=== PATIENT | male | born 1945 | race Hispanic/Latino ===

== ENCOUNTER 2017-05-30 07:34 | Day surgery (SDC) | payer OTHER ==
[~2017-05-30 07:34] MED LIST: DIPRIVAN 10 MG/ML IV ONE; NACL BACTERIOSTATIC INFILTRATI ONE; VERSED ONE; XYLOCAINE 1%/ EPI 1:100,000 INFILTRATI ONE
[2017-05-30] MEDS ORDERED: NACL 0.9% 1000 ML 1,000 ML ONE (07:39)
[2017-05-30] MEDS ORDERED: XYLOCAINE MPF 2% ONE (07:44)
--- NOTE | 2017-05-30 07:45 | Anesthesia Consultation ---
Anesthesia Consult and Med Hx Date of service: 05/30/17 - Airway Anesthetic Teeth Evaluation: Edentulous ROM Head & Neck: Adequate Mental/Hyoid Distance: Adequate Mallampati Class: Class III Intubation Access Assessment: Probably Good - Pulmonary Exam CTA: Yes - Cardiac Exam Cardiac Exam: RRR - Pre-Operative Health Status ASA Pre-Surgery Classification: ASA3 Proposed Anesthetic Plan: General, MAC (Informed consent obtained) - Pulmonary Hx Smoking: Yes (STOPPED ) COPD: Yes (DAILY INHALERS) Hx Sleep Apnea: Yes (DX SLEEP APNEA , NO CPAP, O2 AT NIGHT) - Cardiovascular System Hx Hypertension: Yes (X 18 YRS) Hx Coronary Artery Disease: Yes Hx Heart Attack/AMI: No Hx Peripheral Vascular Disease: Yes - Central Nervous System Hx Back Pain: Yes (WITH PAIN /WEAKNESS SUSIE LEGS) - Endocrine Hx Hypothyroidism: Yes (ON DAILY MEDS ( JUST STARTED)) - Other Systems Hx Cancer: Yes (SKIN CA FROM NOSE AND LEFT HAND REMOVED)
--- NOTE | 2017-05-30 07:46 | Anesthesia Day of Surgery ---
Anesthesia Day of Surgery - Day of Surgery Patient Examined: Yes Patient H&P Reviewed: Yes Patient is NPO: Yes
[2017-05-30] MEDS ORDERED: SUBLIMAZE IV PRN (07:47)
[2017-05-30] MEDS ORDERED: PEPCID IV NR (08:00)
[2017-05-30] MEDS ORDERED: PROVENTIL IH NR (08:00)
[2017-05-30] MEDS ORDERED: NACL 0.9% 1000 ML 1,000 ML IV SCH (08:00)
[2017-05-30 08:12] LABS: Hematocrit 39.5 % (35.5-45.6); Hemoglobin 13.3 gm/dl (11.8-15.2); Mean Corpuscular HGB Conc 34 % (32-34); Mean Corpuscular Hemoglobin 32 pg (28-32); Mean Corpuscular Volume 94 fl (84-94); Platelet Count 160 K/mm3 (140-440); Red Blood Count 4.22 M/mm3 (3.65-5.03); Red Cell Distribution Width 13.5 % (13.2-15.2)
[2017-05-30 08:28] LABS: BUN/Creatinine Ratio 12; Blood Urea Nitrogen 11 mg/dL (9-20); Calcium 8.6 mg/dL (8.4-10.2); Hemolysis Index 15
--- NOTE | 2017-05-30 08:30 | Short Stay Summary ---
Short Stay Documentation Date of service: 05/30/17 - History H&P: obtained from office - Allergies and Medications Current Medications: Allergies No Known Allergies Allergy (Verified 05/22/17 17:24) Home Medications Medication Instructions Recorded Confirmed Last Taken Type ALBUTEROL Inhaler [Proair] 2 puff IH QID PRN 05/22/17 05/22/17 Unknown History ALBUTEROL NEB's [Proventil] 2.5 mg IH TID PRN 05/22/17 05/22/17 Unknown History Aspirin [Aspirin TAB] 325 mg PO QDAY 05/22/17 05/22/17 Unknown History Carvedilol [Coreg] 25 mg PO BID 05/22/17 05/22/17 Unknown History Celecoxib [celeBREX] 200 mg PO DAILY 05/22/17 05/22/17 Unknown History Clotrimazole/Betamethasone 1 applicatio TP BID 05/22/17 05/22/17 Unknown History [Lotrisone] Diclofenac Sodium 75 mg PO PRN PRN 05/22/17 05/22/17 Unknown History Furosemide [Lasix TAB] 60 mg PO QDAY 05/22/17 05/22/17 Unknown History Ipratropium/Albuterol Sulfate 1 spray IH PRN PRN 05/22/17 05/22/17 Unknown History [Combivent Respimat] Levothyroxine [Synthroid] 50 mcg PO QAM 05/22/17 05/22/17 Unknown History Linaclotide (Nf) [Linzess (Nf)] 290 mcg PO QDAY 05/22/17 05/22/17 Unknown History Methadone [Dolophine] 5 mg PO DAILY 05/22/17 05/22/17 Unknown History Naloxegol Oxalate [Movantik] 25 mg PO DAILY 05/22/17 05/22/17 Unknown History Potassium Chloride [Klor-Con 10 meq PO DAILY 05/22/17 05/22/17 Unknown History Sprinkle] Sennosides [Senna] 8.6 mg PO DAILY 05/22/17 05/22/17 Unknown History Umeclidinium Brm/Vilanterol Tr 1 each IH DAILY 05/22/17 05/22/17 Unknown History [Anoro Ellipta 62.5-25 Mcg INH] Venlafaxine HCl [Venlafaxin ER] 75 mg PO DAILY 05/22/17 05/22/17 Unknown History oxyCODONE [Roxicodone] 10 mg PO BID 05/22/17 05/22/17 Unknown History Active Medications Albuterol (Proventil) 2.5 mg IH PREOP NR Stop: 05/30/17 12:00 Last Admin: 05/30/17 08:01 Dose: 2.5 mg Famotidine (Pepcid) 20 mg IV PREOP NR Stop: 05/30/17 12:00 Last Admin: 05/30/17 07:53 Dose: 20 mg Fentanyl (Sublimaze) 50 mcg IV Q5MIN PRN PRN Reason: Pain , Severe (7-10) Stop: 05/30/17 12:00 Sodium Chloride (Nacl 0.9% 1000 Ml) 1,000 mls @ 75 mls/hr IV DIRECT VALENCIA Last Admin: 05/30/17 07:53 Dose: 75 mls/hr Vancomycin HCl (Vancomycin/Ns 1 Gm/250 Ml) 1 gm in 250 mls @ 166.667 mls/hr IV PREOP NR; Protocol - Disposition Condition at discharge: Good Disposition: [id number] TO HOME OR SELFCARE Short Stay Discharge Plan Activity: advance as tolerated Weight Bearing Status: Weight Bear as Tolerated Diet: low cholesterol Wound: remove dressing (tomorrow), other Durable Medical Equipment Needed Upon Discharge: other (abdominal binder) Follow up with: ATILIO SANCHEZ MD [Primary Care Provider] - 7 Days Prescriptions: oxyCODONE [Roxicodone TAB] 10 mg PO BID 7 Days #20 tablet
[2017-05-30] MEDS ORDERED: NACL 0.9% 250ML 250 ML ONE (08:34)
[2017-05-30] MEDS ORDERED: VANCOMYCIN VIAL ONE (08:34)
[2017-05-30] MEDS ORDERED: KETALAR ONE (08:39)
[2017-05-30] MEDS ORDERED: XYLOCAINE 1%/ EPI 1:100,000 INFILTRATI ONE ×2 (08:40)
[2017-05-30] MEDS ORDERED: NACL 0.9% IR ONE (08:58)
[2017-05-30] MEDS ORDERED: VANCOMYCIN/0.45 NS 1 GM/250 ML 1 GM/250 ML BAG IV SCH (09:00)
[2017-05-30] MEDS ORDERED: VANCOMYCIN/NS 1 GM/250 ML 1 GM/250 ML BAG IV NR (09:00)
[2017-05-30] MEDS ORDERED: BACITRACIN ONE (09:15)
--- NOTE | 2017-05-30 09:40 | Operative Report ---
Operative Report Operative Report: DATE OF PROCEDURE: 05/30/2017 PREOPERATIVE DIAGNOSIS: Depleted morphine pop POSTOPERATIVE DIAGNOSIS: Depleted morphine pop OPERATIVE PROCEDURE: 1. Incision and removal of morphine pump 2. 3. SURGEON: Juan Espinoza MD PUBLIC ADDRESS ANNOUNCER: ANESTHESIA: General endotracheal anesthesia EBL: None INDICATIONS FOR PROCEDURE: Depleted morphine pump FINDINGS: Intact morphine pump with calcified encasement PROCEDURE: Patient was brought to the operating room and placed operating table in the supine position. He was under monitored anesthesia care. After appropriate time out was taken the left lower quadrant was prepped and draped in sterile fashion. The pocket was infiltrated with 1% lidocaine with epinephrine and opened using a 10 blade. A pump was then dissected out and the intrathecal catheter was tied off using several 2-0 silk ties. A pop was removed and cleaned. The pocket was cultured and irrigated with antibiotic solution and attention was turned to closing. The skin was reapproximated using 3-0 Vicryl and finally 4-0 Monocryl. The lap sponge and needle count was correct at the end of the procedure, the patient tolerated the procedure well and was taken to the recovery room extubated and in good condition.
[2017-05-30 10:32] VITALS: BP 142/82
--- NOTE | 2017-05-30 10:46 | Post Anesthesia Evaluation ---
- Post Anesthesia Evaluation Patient Participated: Yes Airway Patent: Yes Stable Respiratory Function: Yes Nausea/Vomiting: No Temp > 96.8F: Yes Pain Manageable: Yes Adequeate Hydration: Yes Anesthesia Complications: No Block Receding Appropriately: Not Applicable Patient on Ventilator: No
[2017-05-30] MEDS ORDERED: MYCOSTATIN TP ONE (11:53)
== END 2017-05-30 11:10 | disposition home or self-care (01) ==
LOC: OR 07:34
PROVIDERS: ATTEND Neurological Surgery
DX: Z45.1 Encounter for adjustment and management of infusion pump (principal); I25.10 Atherosclerotic heart disease of native coronary artery without angina pectoris; I10 Essential (primary) hypertension; I73.9 Peripheral vascular disease, unspecified; J44.9 Chronic obstructive pulmonary disease, unspecified; E03.9 Hypothyroidism, unspecified; Z98.890 Other specified postprocedural states; Z87.891 Personal history of nicotine dependence; Z79.899 Other long term (current) drug therapy; Z79.82 Long term (current) use of aspirin; Z95.5 Presence of coronary angioplasty implant and graft; Z85.828 Personal history of other malignant neoplasm of skin
CPT/HCPCS: 36415; 62365; 80048; 85027; 87075; 87116; 88300; J2704; J3370; J7030; J7050; 88302; J2250